=== PATIENT | male | born 1950 | race Caucasian/White ===

== ENCOUNTER 2024-02-21 00:01 | Emergency (ER) | payer OTHER ==
[2024-02-21 01:14] LABS: #Basophils 0.07 10x3/uL (0.0-0.2); #Eosinophils Less than 0.03 10x3/uL (0.0-0.7); %Basophils 0.7 % (0.0-1.0); %Eosinophils 0.2 % (0.0-10.0); %Lymphocytes 20.8 % (21.0-51.0); %Monocytes 11.7 % (0.0-10.0); %Neutrophils 66.3 % (42.0-75.0); Hematocrit 37.5 % (42.0-52.0); Hemoglobin 11.8 g/dL (14.0-18.0); Mean Corpuscular HGB CONC 31.5 g/dL (32.0-36.0); Mean Corpuscular Hemoglobin 29.2 pg (27.0-31.0); Mean Corpuscular Volume 92.8 fL (78.0-98.0); Mean Platelet Volume 10.5 fL (7.4-10.4); Platelet Count 288 10x3/uL (130-400); RBC Distribution Width 14.3 % (11.5-14.5); Red Blood Cell (RBC) Count 4.04 mill/uL (4.70-6.10)
[2024-02-21 01:35] LABS: ALT (SGPT) 21 U/L (8-55); AST (SGOT) 19 U/L (5-34); Albumin 3.4 g/dL (3.4-4.8); Alkaline Phosphatase 97 U/L (40-110); Anion Gap 15 mmol/L (10-20); BUN (Urea Nitrogen) 79 mg/dL (8.4-25.7); Bilirubin, Total 0.2 mg/dL (0.2-1.2); Calc. Creatinine Clearance 0 mL/min (70-130); Calcium 9.6 mg/dL (7.8-10.44); Carbon Dioxide 20 mmol/L (23-31); Chloride 106 mmol/L (98-107); Estimated GFR 40; Globulin 4.5 g/dL (2.4-3.5); Glucose 106 mg/dL (83-110); Potassium 5.6 mmol/L (3.5-5.1); Protein, Total 7.9 g/dL (5.8-8.1); Sodium 135 mmol/L (136-145)
[2024-02-21 03:33] LABS: Anion Gap 15 mmol/L (10-20); BUN (Urea Nitrogen) 78 mg/dL (8.4-25.7); Calc. Creatinine Clearance 0 mL/min (70-130); Calcium 9.5 mg/dL (7.8-10.44); Carbon Dioxide 19 mmol/L (23-31); Chloride 107 mmol/L (98-107); Estimated GFR 42; Glucose 107 mg/dL (83-110); Potassium 5.3 mmol/L (3.5-5.1); Sodium 136 mmol/L (136-145)
== END 2024-02-21 05:23 ==
LOC: ERS 00:01
DX: E87.5 Hyperkalemia (principal); I10 Essential (primary) hypertension
CPT/HCPCS: 36415; 80053; 85025; 93005; 99285

== ENCOUNTER 2024-03-13 16:48 | Emergency (ER) | payer OTHER | END 2024-03-13 19:44 | LOC: ERS 16:48 → EEVIPCON 16:48 → ERS 19:44 | DX: K94.23 Gastrostomy malfunction (principal); I10 Essential (primary) hypertension; Z87.891 Personal history of nicotine dependence | CPT/HCPCS: 99283 ==